=== PATIENT | female | born 1975 | race Caucasian/White ===

== ENCOUNTER 2017-02-26 13:47 | Emergency (ER) | payer OTHER ==
--- NOTE | 2017-02-26 14:38 | DIAGNOSTIC IMAGING REPORT ---
PROCEDURE: XR SHOULDER 2 OR MORE VW-RIGHT INDICATION: PAIN TECHNIQUE: Three views. COMPARISON: None. FINDINGS: Calcific tendonitis. No fracture or dislocation. IMPRESSION: 1. Calcific tendonitis
--- NOTE | 2017-02-26 14:38 | DIAGNOSTIC IMAGING REPORT ---
PROCEDURE: XR SHOULDER 2 OR MORE VW-RIGHT INDICATION: PAIN TECHNIQUE: Three views. COMPARISON: None. FINDINGS: Calcific tendonitis. No fracture or dislocation. IMPRESSION: 1. Calcific tendonitis
--- NOTE | 2017-02-26 15:15 | ED NURSING NOTES ---
Clinical Report - Nurses [facility] [place] [address] 02/26/2017 13:57 [id number] TRI[facility] Triage time 14:Feb 26 2017. Acuity: LEVEL 4. Chief Complaint: RIGHT UPPER EXTREMITY PAIN. 14:07 02/26/17. Alert. No acute distress. BENITA COMA SCORE: [place] Coma Scale: 15- eyes open spontaneously (4); best verbal response- oriented x 4 (5); best motor response- obeys commands (6). --14:15 Angy Rodriguez R.N. 14:06 02/26/17. BP: 124/75. HR: 71. RR: 16. O2 saturation: 98%. Temp: 98.3 F. Pain level now: 07/03. --14:15 Angy Rodriguez R.N. Weight: 73 kg stated. Height/Length: 64 inches Per Patient. BMI: 27.6. --14:15 Angy Rodriguez R.N. Medications None. --14:08 Angy Rodriguez R.N. Medication/allergy information source: the patient. --14:15 Angy Rodriguez R.N. Allergies No Known Drug Allergy. --14:08 Angy Rodriguez R.N. History Arrived by private vehicle. Historian: patient. Accompanied by family. No injury occurred. This occurred (many months). It is described as radiating to the right upper extremity and upper arm. Provoking / relieving factors: relieved by positioning and OTC meds. The patient has had low grade fever and weakness. 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 PAST MEDICAL HX: Tetanus status: up-to-date. Immunizations: up-to-date. Last normal menstrual period now. Denies current . SOCIAL HX: Never smoker. Occasional alcohol use. History of occasional drug use: marijuana. No infectious disease exposure. SELF HARM ASSESSMENT: A self harm assessment was performed. The patient answered "no" to the question "Do you have thoughts of harming or killing yourself?". FALL RISK ASSESSMENT: Fall risk assessment completed. No fall risk identified. NUTRITIONAL RISK ASSESSMENT: The nutritional risk assessment revealed no deficiencies. FUNCTIONAL ASSESSMENT: Functional assessment: no impairments noted. LEARNING NEEDS ASSESSMENT: The learning needs assessment revealed no barriers. ABUSE ASSESSMENT: Abuse assessment: The patient was asked "Do you feel safe in your home?". SKIN INTEGRITY ASSESSMENT: Skin integrity risk assessment completed. No skin integrity risk identified. --14:15 Angy Rodriguez R.N. PROBLEMS: Dental Pain. Abdominal Pain. Vomiting. . OB History. Femal issues, "cone" . Appendicitis. Immunizations. LNMP - Last Normal Menstrual Period. --14:08 Angy Rodriguez R.N. Gallbladder Disease. --14:09 Angy Rodriguez R.N. ADDITIONAL SURGERIES: Appendectomy. Loop Cone. --14:09 Angy Rodriguez R.N. Bilateral Tubal Ligation. . --14:11 Angy Rodriguez R.N. Interventions ID band on patient. To room. --14:15 Angy Rodriguez R.N. PHYSICAL ASSESSMENT Ambulatory to room. GENERAL / NEURO / PSYCH: Oriented X 4. Alert. Appears in no acute distress. EXTREMITIES: Limited ROM present. Neuro-vascular status intact to the extremity. No upper extremity edema. Right shoulder: tenderness. SKIN: Skin is warm and dry. --14:16 Angy Rodriguez R.N. NURSING PROGRESS NOTES Patient gowned. Two patient identifiers checked. Call light placed in reach. Side rails up x 1. Bed placed in lowest position. Brakes of bed on. --14:16 Angy Rodriguez R.N. Care transferred and report given (April HARDIN). --14:20 Angy Rodriguez R.N. 15:20. ( First contact with pt. Pt sitting on bed, fully dressed, in no acute distress. waiting for dc instructions). --16:41 Rosario Solis R.N. DISPOSITION / DISCHARGE 15:20. Condition at departure: improved and stable. No learning barriers present. Discharge instructions provided and reviewed with the patient and spouse. Reviewed medication(s) (naproxyn, vicodin). Treatments reviewed (ice). Patient and spouse verbalized understanding. Written instructions provided in Urdu. The patient was discharged home and accompanied by spouse. She left the Emergency Department ambulatory and via private vehicle. Spouse driving. --16:40 Rosario Solis R.N. 15:20 02/26/17. BP: 118/69. HR: 70. RR: 16. O2 saturation: 100%. Temp: deferred. Pain level now: 05/03. --16:40 Rosario Solis R.N. Locked/Released at 02/26/2017 16:41 by Rosario Solis R.N.
--- NOTE | 2017-02-26 15:15 | ED NURSING NOTES ---
Clinical Report - Nurses [facility] [place] [address] 02/26/2017 13:57 [id number] Triage time 14:Feb 26 2017. Acuity: LEVEL 4. Chief Complaint: RIGHT UPPER EXTREMITY PAIN. 14:07 02/26/17. Alert. No acute distress. BENITA COMA SCORE: [place] Coma Scale: 15- eyes open spontaneously (4); best verbal response- oriented x 4 (5); best motor response- obeys commands (6). --14:15 Angy Rodriguez R.N. 14:06 02/26/17. BP: 124/75. HR: 71. RR: 16. O2 saturation: 98%. Temp: 98.3 F. Pain level now: 07/03. --14:15 Angy Rodriguez R.N. Weight: 73 kg stated. Height/Length: 64 inches Per Patient. BMI: 27.6. --14:15 Angy Rodriguez R.N. Medications None. --14:08 Angy Rodriguez R.N. Medication/allergy information source: the patient. --14:15 Angy Rodriguez R.N. Allergies No Known Drug Allergy. --14:08 Angy Rodriguez R.N. History Arrived by private vehicle. Historian: patient. Accompanied by family. No injury occurred. This occurred (many months). It is described as radiating to the right upper extremity and upper arm. Provoking / relieving factors: relieved by positioning and OTC meds. The patient has had low grade fever and weakness. 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 PAST MEDICAL HX: Tetanus status: up-to-date. Immunizations: up-to-date. Last normal menstrual period now. Denies current . SOCIAL HX: Never smoker. Occasional alcohol use. History of occasional drug use: marijuana. No infectious disease exposure. SELF HARM ASSESSMENT: A self harm assessment was performed. The patient answered "no" to the question "Do you have thoughts of harming or killing yourself?". FALL RISK ASSESSMENT: Fall risk assessment completed. No fall risk identified. NUTRITIONAL RISK ASSESSMENT: The nutritional risk assessment revealed no deficiencies. FUNCTIONAL ASSESSMENT: Functional assessment: no impairments noted. LEARNING NEEDS ASSESSMENT: The learning needs assessment revealed no barriers. ABUSE ASSESSMENT: Abuse assessment: The patient was asked "Do you feel safe in your home?". SKIN INTEGRITY ASSESSMENT: Skin integrity risk assessment completed. No skin integrity risk identified. --14:15 Angy Rodriguez R.N. PROBLEMS: Dental Pain. Abdominal Pain. Vomiting. . OB History. Femal issues, "cone" . Appendicitis. Immunizations. LNMP - Last Normal Menstrual Period. --14:08 Angy Rodriguez R.N. Gallbladder Disease. --14:09 Angy Rodriguez R.N. ADDITIONAL SURGERIES: Appendectomy. Loop Cone. --14:09 Angy Rodriguez R.N. Bilateral Tubal Ligation. . --14:11 Angy Rodriguez R.N. Interventions ID band on patient. To room. --14:15 Angy Rodriguez R.N. PHYSICAL ASSESSMENT Ambulatory to room. GENERAL / NEURO / PSYCH: Oriented X 4. Alert. Appears in no acute distress. EXTREMITIES: Limited ROM present. Neuro-vascular status intact to the extremity. No upper extremity edema. Right shoulder: tenderness. SKIN: Skin is warm and dry. --14:16 Angy Rodriguez R.N. NURSING PROGRESS NOTES Patient gowned. Two patient identifiers checked. Call light placed in reach. Side rails up x 1. Bed placed in lowest position. Brakes of bed on. --14:16 Angy Rodriguez R.N. Care transferred and report given (April HARDIN). --14:20 Angy Rodriguez R.N. 15:20. ( First contact with pt. Pt sitting on bed, fully dressed, in no acute distress. waiting for dc instructions). --16:41 Rosario Solis R.N. DISPOSITION / DISCHARGE 15:20. Condition at departure: improved and stable. No learning barriers present. Discharge instructions provided and reviewed with the patient and spouse. Reviewed medication(s) (naproxyn, vicodin). Treatments reviewed (ice). Patient and spouse verbalized understanding. Written instructions provided in Sinhala. The patient was discharged home and accompanied by spouse. She left the Emergency Department ambulatory and via private vehicle. Spouse driving. --16:40 Rosario Solis R.N. 15:20 02/26/17. BP: 118/69. HR: 70. RR: 16. O2 saturation: 100%. Temp: deferred. Pain level now: 05/03. --16:40 Rosario Solis R.N. Locked/Released at 02/26/2017 16:41 by Rosario Solis R.N.
--- NOTE | 2017-02-26 15:15 | ED CLINICAL REPORT ---
Clinical Report - Physicians/Mid Levels [facility] [address] [place] [address] 02/26/2017 13:57 Patient: JEFFRY HERNANDEZ Time Seen: 14:09; upon arrival, initial patient contact, initial documentation, patient care assumed. Arrived- By private vehicle. Historian- patient. HISTORY OF PRESENT ILLNESS Chief Complaint: UPPER EXTREMITY PAIN. This started about 1 years ago and is still present and worsening. (worse 2 months ago or more). The quality is noted to be "pain". No radiation. Modifying factors- worsened by movement of arm. Not made better by anything. Symptoms located in the area of the right shoulder. No chest pain, difficulty breathing, swelling, sensory loss or motor loss. No repetitive hand use at work. She has not had redness. Patient denies an injury. Similar symptoms previously: Chronically, as bad. Recent medical care: Not recently seen/assessed. REVIEW OF SYSTEMS All systems otherwise negative, except as recorded above. PAST HISTORY See nurses notes. PROBLEMS: Dental Pain. Abdominal Pain. Vomiting. . OB History. Femal issues, "cone" . Appendicitis. Immunizations. LNMP - Last Normal Menstrual Period. --14:08 Angy Rodriguez R.N. SOCIAL HISTORY Never smoker. Occasional alcohol use. History of occasional drug use: marijuana. No recent travel. Is a local resident. FAMILY HISTORY Negative. ADDITIONAL NOTES The nursing notes have been reviewed with agreement regarding the chief complaint, HPI, ROS, PMH and patient medications and allergies. PHYSICAL EXAM Vital Signs: 02/26/2017 14:06 BP: 124/75. HR: 71. RR: 16. O2 saturation: 98%. Temp: 98.3 F. Pain level now: 8/10. Have been reviewed as normal and appear to be correct. Appearance: Alert. Oriented X3. No acute distress. Eyes: Pupils equal, round and reactive to light. Eyes normal inspection. Neck: Normal inspection. Neck supple. Respiratory: No respiratory distress. Back: Normal inspection. No tenderness. ROM normal. Skin: Skin intact. Skin warm and dry. Normal skin color. Normal skin turgor. Extremities: Upper extremities abnormal to inspection. Upper extremities do not exhibit normal ROM. Upper extremity tenderness. No upper extremity edema. Right shoulder: mild tenderness. Limited ROM due to pain (diminished abduction, adduction, flexion, extension and external and internal rotation). Neurovascular intact distally. No erythema, swelling, laceration, abrasion or ecchymosis. No puncture wound, foreign body or deformity. No localization or joint effusion. Extremities otherwise negative. Neuro: Oriented X 3. No motor deficit. No sensory deficit. LABS, X-RAYS, AND EKG X-Rays: Right shoulder. Rt Shoulder X-ray: (IMPRESSION: 1. Calcific tendonitis Electronically Final signed by:Jairo Gallardo MD 02/26/2017 2:38:34 PM). The X-rays were interpreted by the radiologist and contemporaneously by me and discussed with the radiologist. Interpretation time: 14:40. PROGRESS AND PROCEDURES Course of Care: 14:18 02/26/17. pt has brief frederic, nothing alarming, see report for full details. Patient and spouse counseled in person regarding the patient's stable condition, test results and diagnosis. 14:40. Differential Diagnosis: I considered stress fracture, aseptic necrosis, primary tumor, degenerative joint disease, arthritis, rheumatoid arthritis, gout, pseudogout, acromioclavicular separation, tendonitis, myositis, fasciitis and bursitis as a possible cause of upper extremity pain in this patient. This is a partial list of diagnoses considered. Above considerations are based on history, physical exam, reassessment and X-Ray data. Differential diagnosis was discussed with patient and patient's spouse. Disposition: Discharged home in good and unchanged condition (15:15). Condition: good and stable. CLINICAL IMPRESSION Chronic calcific tendonitis in the right shoulder. INSTRUCTIONS Warnings: GENERAL WARNINGS: Return or contact your physician immediately if your condition worsens or changes unexpectedly, if not improving as expected, or if other problems arise. Specifically return if problem worsens. Prescription Medications: Naproxen 500 mg tablets: take 1 orally every 12 hours as needed for pain. Dispense twenty (20). No refills. [place] 5 mg / 325 mg tablets: take 1 orally every 6 hours as needed for pain. Dispense five (5). No refill. Understanding of the discharge instructions verbalized by patient. Follow-up with: [facility], , [address], , [place], [facility]; Sukhjinder Morgan M.D., Ortho, , [address], , [place], [address]; Gus Price M.D., Ortho, , [address], , [place], [address]; Irving Sullivan MD, Orthopedic Surgeon, , [address], , [place], [address]; Jesse Disla MD, Orthopedic Surgeon, , [address] , [place] [address] Follow up in one week as needed. Call for an appointment. Summary of care provided to patient. (Electronically signed by Alma Bergman A.R.N.P. 02/26/2017 15:27)
--- NOTE | 2017-02-26 15:15 | ED ORDER SUMMARY ---
..... Patient: JEFFRY HERNANDEZ OrderSheet [facility] VisitID: [id number] [place] [address] 41y, F Registration Date/Time: 02/26/2017 ORDER SHEET Weight: 73.0 kg (stated) Allergies: No Known Drug Allergy GENERAL ORDERS: Shoulder 2V or more Right Urgent (14:15 02/26/2017 YURIYivenviviana A.R.N.P.) (Ack 14:17 KEVINoercarol) (14:25 Andre) MEDICATION ORDERS: IV FLUIDS: ORDER SHEET NOTES: [Electronically signed by Alma Bergman A.R.N.P. (15:27 02/26/2017)] [Electronically signed by Rosario Solis R.N. (16:41 02/26/2017)] [Electronically locked/signed by Rosario Solis R.N. (16:41 02/26/2017)]
--- NOTE | 2017-02-26 15:15 | ED ORDER SUMMARY ---
..... Patient: JEFFRY HERNANDEZ OrderSheet [facility] VisitID: [id number] [place] [address] 41y, F Registration Date/Time: 02/26/2017 ORDER SHEET Weight: 73.0 kg (stated) Allergies: No Known Drug Allergy GENERAL ORDERS: Shoulder 2V or more Right Urgent (14:15 02/26/2017 YURIYivenviviana A.R.N.P.) (Ack 14:17 KEVINoercarol) (14:25 Andre) MEDICATION ORDERS: IV FLUIDS: ORDER SHEET NOTES: [Electronically signed by Alma Bergman A.R.N.P. (15:27 02/26/2017)] [Electronically signed by Rosario Solis R.N. (16:41 02/26/2017)] [Electronically locked/signed by Rosario Solis R.N. (16:41 02/26/2017)]
--- NOTE | 2017-02-26 15:15 | ED CLINICAL REPORT ---
Clinical Report - Physicians/Mid Levels [facility] [address] [place] [address] 02/26/2017 13:57 Patient: JEFFRY HERNANDEZ Time Seen: 14:09; upon arrival, initial patient contact, initial documentation, patient care assumed. Arrived- By private vehicle. Historian- patient. HISTORY OF PRESENT ILLNESS Chief Complaint: UPPER EXTREMITY PAIN. This started about 1 years ago and is still present and worsening. (worse 2 months ago or more). The quality is noted to be "pain". No radiation. Modifying factors- worsened by movement of arm. Not made better by anything. Symptoms located in the area of the right shoulder. No chest pain, difficulty breathing, swelling, sensory loss or motor loss. No repetitive hand use at work. She has not had redness. Patient denies an injury. Similar symptoms previously: Chronically, as bad. Recent medical care: Not recently seen/assessed. REVIEW OF SYSTEMS All systems otherwise negative, except as recorded above. PAST HISTORY See nurses notes. PROBLEMS: Dental Pain. Abdominal Pain. Vomiting. . OB History. Femal issues, "cone" . Appendicitis. Immunizations. LNMP - Last Normal Menstrual Period. --14:08 Angy Rodriguez R.N. SOCIAL HISTORY Never smoker. Occasional alcohol use. History of occasional drug use: marijuana. No recent travel. Is a local resident. FAMILY HISTORY Negative. ADDITIONAL NOTES The nursing notes have been reviewed with agreement regarding the chief complaint, HPI, ROS, PMH and patient medications and allergies. PHYSICAL EXAM Vital Signs: 02/26/2017 14:06 BP: 124/75. HR: 71. RR: 16. O2 saturation: 98%. Temp: 98.3 F. Pain level now: 8/10. Have been reviewed as normal and appear to be correct. Appearance: Alert. Oriented X3. No acute distress. Eyes: Pupils equal, round and reactive to light. Eyes normal inspection. Neck: Normal inspection. Neck supple. Respiratory: No respiratory distress. Back: Normal inspection. No tenderness. ROM normal. Skin: Skin intact. Skin warm and dry. Normal skin color. Normal skin turgor. Extremities: Upper extremities abnormal to inspection. Upper extremities do not exhibit normal ROM. Upper extremity tenderness. No upper extremity edema. Right shoulder: mild tenderness. Limited ROM due to pain (diminished abduction, adduction, flexion, extension and external and internal rotation). Neurovascular intact distally. No erythema, swelling, laceration, abrasion or ecchymosis. No puncture wound, foreign body or deformity. No localization or joint effusion. Extremities otherwise negative. Neuro: Oriented X 3. No motor deficit. No sensory deficit. LABS, X-RAYS, AND EKG X-Rays: Right shoulder. Rt Shoulder X-ray: (IMPRESSION: 1. Calcific tendonitis Electronically Final signed by:Jairo Gallardo MD 02/26/2017 2:38:34 PM). The X-rays were interpreted by the radiologist and contemporaneously by me and discussed with the radiologist. Interpretation time: 14:40. PROGRESS AND PROCEDURES Course of Care: 14:18 02/26/17. pt has brief frederic, nothing alarming, see report for full details. Patient and spouse counseled in person regarding the patient's stable condition, test results and diagnosis. 14:40. Differential Diagnosis: I considered stress fracture, aseptic necrosis, primary tumor, degenerative joint disease, arthritis, rheumatoid arthritis, gout, pseudogout, acromioclavicular separation, tendonitis, myositis, fasciitis and bursitis as a possible cause of upper extremity pain in this patient. This is a partial list of diagnoses considered. Above considerations are based on history, physical exam, reassessment and X-Ray data. Differential diagnosis was discussed with patient and patient's spouse. Disposition: Discharged home in good and unchanged condition (15:15). Condition: good and stable. CLINICAL IMPRESSION Chronic calcific tendonitis in the right shoulder. INSTRUCTIONS Warnings: GENERAL WARNINGS: Return or contact your physician immediately if your condition worsens or changes unexpectedly, if not improving as expected, or if other problems arise. Specifically return if problem worsens. Prescription Medications: Naproxen 500 mg tablets: take 1 orally every 12 hours as needed for pain. Dispense twenty (20). No refills. [place] 5 mg / 325 mg tablets: take 1 orally every 6 hours as needed for pain. Dispense five (5). No refill. Understanding of the discharge instructions verbalized by patient. Follow-up with: [facility], , [address], , [place], [facility]; Sukhjinder Morgan M.D., Ortho, , [address], , [place], [address]; Gus Price M.D., Ortho, , [address], , [place], [address]; Irving Sullivan MD, Orthopedic Surgeon, , [address], , [place], [address]; Jesse Disla MD, Orthopedic Surgeon, , [address] , [place] [address] Follow up in one week as needed. Call for an appointment. Summary of care provided to patient. (Electronically signed by Alma Bergman A.R.N.P. 02/26/2017 15:27)
--- NOTE | 2017-02-26 16:41 | ED MED RECONCILIATION SUMMARY ---
Patient: JEFFRY HERNANDEZ Medication Reconciliation Report [facility] VisitID: [id number] [place] [address] 41y, F Registration Date/Time: 02/26/2017 Weight: 73.0 kg Height/Length: 64 in. BMI: 27.6 ALLERGIES: No Known Drug Allergy The patient's Home Medications are listed below: NONE. The source(s) of the original Home Medication information: patient The following Medications were given to the patient in the Emergency Department: None. The following Medications were prescribed to the patient: Naproxen 500 mg tablets: take 1 orally every 12 hours as needed for pain. Dispense twenty (20). No refills. -- Alma Bergman, A.R.N.P. [place] 5 mg / 325 mg tablets: take 1 orally every 6 hours as needed for pain. Dispense five (5). No refill. -- Alma Bergman A.R.N.P.
--- NOTE | 2017-02-26 16:41 | ED MAR SUMMARY ---
..... Medication Administration Record [facility] [address] [place], [place] [id number] Patient: GEORGES HERNANDEZQUEPABLO Miller Visit ID: [id number] 41y, F Weight: 73.0 kg Height/Length: 64 in BMI: 27.6 ALLERGIES: No Known Drug Allergy
--- NOTE | 2017-02-26 16:41 | ED MED RECONCILIATION SUMMARY ---
Patient: JEFFRY HERNANDEZ Medication Reconciliation Report [facility] VisitID: [id number] [place] [address] 41y, F Registration Date/Time: 02/26/2017 Weight: 73.0 kg Height/Length: 64 in. BMI: 27.6 ALLERGIES: No Known Drug Allergy The patient's Home Medications are listed below: NONE. The source(s) of the original Home Medication information: patient The following Medications were given to the patient in the Emergency Department: None. The following Medications were prescribed to the patient: Naproxen 500 mg tablets: take 1 orally every 12 hours as needed for pain. Dispense twenty (20). No refills. -- Alma Bergman, A.R.N.P. [place] 5 mg / 325 mg tablets: take 1 orally every 6 hours as needed for pain. Dispense five (5). No refill. -- Alma Bergman A.R.N.P.
--- NOTE | 2017-02-26 16:41 | ED DISCHARGE INSTRUCTIONS ---
Patient: JEFFRY HERNANDEZ General Instructions [facility] VisitID: [id number] 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 INSTRUCTIONS Warnings: GENERAL WARNINGS: Return or contact your physician immediately if your condition worsens or changes unexpectedly, if not improving as expected, or if other problems arise. Specifically return if problem worsens. Prescription Medications: Naproxen 500 mg tablets: take 1 orally every 12 hours as needed for pain. Dispense twenty (20). No refills. [place] 5 mg / 325 mg tablets: take 1 orally every 6 hours as needed for pain. Dispense five (5). No refill. Understanding of the discharge instructions verbalized by patient. Follow-up with: [facility], [facility], , [address], , [place] [id number]; Sukhjinder Morgan M.D., Ortho, , [address], , [facility] [id number]; Gus Price M.D., Ortho, , [address], , [place] [id number]; Irving Sullivan MD, Orthopedic Surgeon, , [address], , [place], [address]; Jesse Disla MD, Orthopedic Surgeon, , [address] , [place] [id number] Follow up in one week as needed. Call for an appointment. Summary of care provided to patient. ADDITIONAL INFORMATION Tendonitis A tendon is the thick fibrous cord that joins muscle to bone and causes joints to move. Tendonitis is inflammation of the tendon which may be due to overuse, injury or infection. This usually involves the shoulders, forearm, wrist, hands and foot. Symptoms include local pain, swelling and tenderness to the touch. Movement of the involved joint increases the pain. Tendonitis requires about 4 to 6 weeks to heal. It is treated by preventing motion of the tendon with a splint or brace and use of anti-inflammatory medicine. Home Care: Apply an ice pack (ice cubes in a plastic bag, wrapped in a towel) over the injured area for 20 minutes every 1-2 hours the first day for pain relief. Continue this 3-4 times a day until the pain and swelling goes away. Rest the inflamed joint and protect it from movement. You may use ibuprofen (Motrin, Advil) or naproxen (Aleve, Naprosyn) to treat pain and inflammation, unless another medicine was prescribed. If you can't take these medicines, acetaminophen (Tylenol) may help with the pain, but does not treat inflammation. [NOTE : If you have chronic liver or kidney disease or ever had a stomach ulcer or GI bleeding, talk with your doctor before using these medicines.] As your symptoms improve, begin gradual motion at the involved joint. Follow Up With Your Doctor If Not Improving After The First Five Days Of Treatment. Get Prompt Medical Attention If Any Of The Following Occur: Redness over the painful area Increasing pain or swelling at the joint Fever of 100.4F (38C) or higher, or as directed by your healthcare provider Naproxen Sodium Oral tablet What is this medicine? NAPROXEN (na PROX en) is a non-steroidal anti-inflammatory drug (NSAID). It is used to reduce swelling and to treat pain. This medicine may be used for dental pain, headache, or painful monthly periods. It is also used for painful joint and muscular problems such as arthritis, tendinitis, bursitis, and gout. How should I use this medicine? Take this medicine by mouth with a glass of water. Follow the directions on the prescription label. Take it with food if your stomach gets upset. Try to not lie down for at least 10 minutes after you take it. Take your medicine at regular intervals. Do not take your medicine more often than directed. Long-term, continuous use may increase the risk of heart attack or stroke. A special MedGuide will be given to you by the pharmacist with each prescription and refill. Be sure to read this information carefully each time. Talk to your trading specialist regarding the use of this medicine in children. Special care may be needed. What side effects may I notice from receiving this medicine? Side effects that you should report to your doctor or health career based intervention coordinator as soon as possible: black or bloody stools, blood in the urine or vomit blurred vision chest pain difficulty breathing or wheezing nausea or vomiting severe stomach pain skin rash, skin redness, blistering or peeling skin, hives, or itching slurred speech or weakness on one side of the body swelling of eyelids, throat, lips unexplained weight gain or swelling unusually weak or tired yellowing of eyes or skin Side effects that usually do not require medical attention (report to your doctor or health career based intervention coordinator if they continue or are bothersome): constipation headache heartburn What may interact with this medicine? alcohol aspirin cidofovir diuretics lithium methotrexate other drugs for inflammation like ketorolac or prednisone pemetrexed probenecid warfarin What if I miss a dose? If you miss a dose, take it as soon as you can. If it is almost time for your next dose, take only that dose. Do not take double or extra doses. Where should I keep my medicine? Keep out of the reach of children. Store at room temperature between 15 and 30 degrees C (59 and 86 degrees F). Keep container tightly closed. Throw away any unused medicine after the expiration date. What should I tell my health care provider before I take this medicine? They need to know if you have any of these conditions: asthma cigarette smoker drink more than 3 alcohol containing drinks a day heart disease or circulation problems such as heart failure or leg edema (fluid retention) high blood pressure kidney disease liver disease stomach bleeding or ulcers an unusual or allergic reaction to naproxen, aspirin, other NSAIDs, other medicines, foods, dyes, or preservatives or trying to get breast-feeding What should I watch for while using this medicine? Tell your doctor or health career based intervention coordinator if your pain does not get better. Talk to your doctor before taking another medicine for pain. Do not treat yourself. This medicine does not prevent heart attack or stroke. In fact, this medicine may increase the chance of a heart attack or stroke. The chance may increase with longer use of this medicine and in people who have heart disease. If you take aspirin to prevent heart attack or stroke, talk with your doctor or health career based intervention coordinator. Do not take other medicines that contain aspirin, ibuprofen, or naproxen with this medicine. Side effects such as stomach upset, nausea, or ulcers may be more likely to occur. Many medicines available without a prescription should not be taken with this medicine. This medicine can cause ulcers and bleeding in the stomach and intestines at any time during treatment. Do not smoke cigarettes or drink alcohol. These increase irritation to your stomach and can make it more susceptible to damage from this medicine. Ulcers and bleeding can happen without warning symptoms and can cause . You may get drowsy or dizzy. Do not drive, use machinery, or do anything that needs mental alertness until you know how this medicine affects you. Do not stand or sit up quickly, especially if you are an older patient. This reduces the risk of dizzy or fainting spells. This medicine can cause you to bleed more easily. Try to avoid damage to your teeth and gums when you brush or floss your teeth. Hydrocodone Bitartrate, Acetaminophen Oral tablet What is this medicine? ACETAMINOPHEN; HYDROCODONE (a set a LUCIANO meredith fen; yash droe KOE done) is a pain reliever. It is used to treat mild to moderate pain. How should I use this medicine? Take this medicine by mouth. Swallow it with a full glass of water. Follow the directions on the prescription label. If the medicine upsets your stomach, take the medicine with food or milk. Do not take more than you are told to take. Talk to your trading specialist regarding the use of this medicine in children. This medicine is not approved for use in children. What side effects may I notice from receiving this medicine? Side effects that you should report to your doctor or health career based intervention coordinator as soon as possible: allergic reactions like skin rash, itching or hives, swelling of the face, lips, or tongue breathing problems confusion feeling faint or lightheaded, falls stomach pain yellowing of the eyes or skin Side effects that usually do not require medical attention (report to your doctor or health career based intervention coordinator if they continue or are bothersome): nausea, vomiting stomach upset What may interact with this medicine? alcohol antihistamines isoniazid medicines for depression, anxiety, or psychotic disturbances medicines for sleep muscle relaxants naltrexone narcotic medicines (opiates) for pain phenobarbital ritonavir tramadol What if I miss a dose? If you miss a dose, take it as soon as you can. If it is almost time for your next dose, take only that dose. Do not take double or extra doses. Where should I keep my medicine? Keep out of the reach of children. This medicine can be abused. Keep your medicine in a safe place to protect it from theft. Do not share this medicine with anyone. Selling or giving away this medicine is dangerous and against the law. Store at room temperature between 15 and 30 degrees C (59 and 86 degrees F). Protect from light. Keep container tightly closed. Throw away any unused medicine after the expiration date. Discard unused medicine and used packaging carefully. Pets and children can be harmed if they find used or lost packages. What should I tell my health care provider before I take this medicine? They need to know if you have any of these conditions: brain tumor Crohn's disease, inflammatory bowel disease, or ulcerative colitis drink more than 3 alcohol-containing drinks per day drug abuse or addiction head injury heart or circulation problems kidney disease or problems going to the bathroom liver disease lung disease, asthma, or breathing problems an unusual or allergic reaction to acetaminophen, hydrocodone, other opioid analgesics, other medicines, foods, dyes, or preservatives or trying to get breast-feeding What should I watch for while using this medicine? Tell your doctor or health career based intervention coordinator if your pain does not go away, if it gets worse, or if you have new or a different type of pain. You may develop tolerance to the medicine. Tolerance means that you will need a higher dose of the medicine for pain relief. Tolerance is normal and is expected if you take the medicine for a long time. Do not suddenly stop taking your medicine because you may develop a severe reaction. Your body becomes used to the medicine. This does NOT mean you are addicted. Addiction is a behavior related to getting and using a drug for a non-medical reason. If you have pain, you have a medical reason to take pain medicine. Your doctor will tell you how much medicine to take. If your doctor wants you to stop the medicine, the dose will be slowly lowered over time to avoid any side effects. You may get drowsy or dizzy when you first start taking the medicine or change doses. Do not drive, use machinery, or do anything that may be dangerous until you know how the medicine affects you. Stand or sit up slowly. There are different types of narcotic medicines (opiates) for pain. If you take more than one type at the same time, you may have more side effects. Give your health care provider a list of all medicines you use. Your doctor will tell you how much medicine to take. Do not take more medicine than directed. Call emergency for help if you have problems breathing. The medicine will cause constipation. Try to have a bowel movement at least every 2 to 3 days. If you do not have a bowel movement for 3 days, call your doctor or health career based intervention coordinator. Too much acetaminophen can be very dangerous. Do not take Tylenol (acetaminophen) or medicines that contain acetaminophen with this medicine. Many non-prescription medicines contain acetaminophen. Always read the labels carefully. You have been given the following additional information: Tendonitis Naproxen Sodium Oral tablet Hydrocodone Bitartrate, Acetaminophen Oral tablet (Electronically signed by Alma Bergman A.R.N.P. 02/26/2017 15:27)
--- NOTE | 2017-02-26 16:41 | ED MAR SUMMARY ---
..... Medication Administration Record [facility] [address] [place], [place] [id number] Patient: GEORGES HERNANDEZQUEPABLO Miller Visit ID: [id number] 41y, F Weight: 73.0 kg Height/Length: 64 in BMI: 27.6 ALLERGIES: No Known Drug Allergy
--- NOTE | 2017-02-26 16:41 | ED DISCHARGE INSTRUCTIONS ---
Patient: JEFFRY HERNANDEZ General Instructions [facility] VisitID: [id number] 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 INSTRUCTIONS Warnings: GENERAL WARNINGS: Return or contact your physician immediately if your condition worsens or changes unexpectedly, if not improving as expected, or if other problems arise. Specifically return if problem worsens. Prescription Medications: Naproxen 500 mg tablets: take 1 orally every 12 hours as needed for pain. Dispense twenty (20). No refills. [place] 5 mg / 325 mg tablets: take 1 orally every 6 hours as needed for pain. Dispense five (5). No refill. Understanding of the discharge instructions verbalized by patient. Follow-up with: [facility], [facility]o, , [address], , [place] [id number]; Sukhjinder Morgan M.D., Ortho, , [address], , [facility] [id number]; Gus Price M.D., Ortho, , [address], , [place] [phone]; Irving Sullivan MD, Orthopedic Surgeon, , [address], , [place], [address]; Jesse Disla MD, Orthopedic Surgeon, , [address] , [place] [id number] Follow up in one week as needed. Call for an appointment. Summary of care provided to patient. ADDITIONAL INFORMATION Tendonitis A tendon is the thick fibrous cord that joins muscle to bone and causes joints to move. Tendonitis is inflammation of the tendon which may be due to overuse, injury or infection. This usually involves the shoulders, forearm, wrist, hands and foot. Symptoms include local pain, swelling and tenderness to the touch. Movement of the involved joint increases the pain. Tendonitis requires about 4 to 6 weeks to heal. It is treated by preventing motion of the tendon with a splint or brace and use of anti-inflammatory medicine. Home Care: Apply an ice pack (ice cubes in a plastic bag, wrapped in a towel) over the injured area for 20 minutes every 1-2 hours the first day for pain relief. Continue this 3-4 times a day until the pain and swelling goes away. Rest the inflamed joint and protect it from movement. You may use ibuprofen (Motrin, Advil) or naproxen (Aleve, Naprosyn) to treat pain and inflammation, unless another medicine was prescribed. If you can't take these medicines, acetaminophen (Tylenol) may help with the pain, but does not treat inflammation. [NOTE : If you have chronic liver or kidney disease or ever had a stomach ulcer or GI bleeding, talk with your doctor before using these medicines.] As your symptoms improve, begin gradual motion at the involved joint. Follow Up With Your Doctor If Not Improving After The First Five Days Of Treatment. Get Prompt Medical Attention If Any Of The Following Occur: Redness over the painful area Increasing pain or swelling at the joint Fever of 100.4F (38C) or higher, or as directed by your healthcare provider Naproxen Sodium Oral tablet What is this medicine? NAPROXEN (na PROX en) is a non-steroidal anti-inflammatory drug (NSAID). It is used to reduce swelling and to treat pain. This medicine may be used for dental pain, headache, or painful monthly periods. It is also used for painful joint and muscular problems such as arthritis, tendinitis, bursitis, and gout. How should I use this medicine? Take this medicine by mouth with a glass of water. Follow the directions on the prescription label. Take it with food if your stomach gets upset. Try to not lie down for at least 10 minutes after you take it. Take your medicine at regular intervals. Do not take your medicine more often than directed. Long-term, continuous use may increase the risk of heart attack or stroke. A special MedGuide will be given to you by the pharmacist with each prescription and refill. Be sure to read this information carefully each time. Talk to your line tender flakeboard regarding the use of this medicine in children. Special care may be needed. What side effects may I notice from receiving this medicine? Side effects that you should report to your doctor or health daycare director as soon as possible: black or bloody stools, blood in the urine or vomit blurred vision chest pain difficulty breathing or wheezing nausea or vomiting severe stomach pain skin rash, skin redness, blistering or peeling skin, hives, or itching slurred speech or weakness on one side of the body swelling of eyelids, throat, lips unexplained weight gain or swelling unusually weak or tired yellowing of eyes or skin Side effects that usually do not require medical attention (report to your doctor or health daycare director if they continue or are bothersome): constipation headache heartburn What may interact with this medicine? alcohol aspirin cidofovir diuretics lithium methotrexate other drugs for inflammation like ketorolac or prednisone pemetrexed probenecid warfarin What if I miss a dose? If you miss a dose, take it as soon as you can. If it is almost time for your next dose, take only that dose. Do not take double or extra doses. Where should I keep my medicine? Keep out of the reach of children. Store at room temperature between 15 and 30 degrees C (59 and 86 degrees F). Keep container tightly closed. Throw away any unused medicine after the expiration date. What should I tell my health care provider before I take this medicine? They need to know if you have any of these conditions: asthma cigarette smoker drink more than 3 alcohol containing drinks a day heart disease or circulation problems such as heart failure or leg edema (fluid retention) high blood pressure kidney disease liver disease stomach bleeding or ulcers an unusual or allergic reaction to naproxen, aspirin, other NSAIDs, other medicines, foods, dyes, or preservatives or trying to get breast-feeding What should I watch for while using this medicine? Tell your doctor or health daycare director if your pain does not get better. Talk to your doctor before taking another medicine for pain. Do not treat yourself. This medicine does not prevent heart attack or stroke. In fact, this medicine may increase the chance of a heart attack or stroke. The chance may increase with longer use of this medicine and in people who have heart disease. If you take aspirin to prevent heart attack or stroke, talk with your doctor or health daycare director. Do not take other medicines that contain aspirin, ibuprofen, or naproxen with this medicine. Side effects such as stomach upset, nausea, or ulcers may be more likely to occur. Many medicines available without a prescription should not be taken with this medicine. This medicine can cause ulcers and bleeding in the stomach and intestines at any time during treatment. Do not smoke cigarettes or drink alcohol. These increase irritation to your stomach and can make it more susceptible to damage from this medicine. Ulcers and bleeding can happen without warning symptoms and can cause . You may get drowsy or dizzy. Do not drive, use machinery, or do anything that needs mental alertness until you know how this medicine affects you. Do not stand or sit up quickly, especially if you are an older patient. This reduces the risk of dizzy or fainting spells. This medicine can cause you to bleed more easily. Try to avoid damage to your teeth and gums when you brush or floss your teeth. Hydrocodone Bitartrate, Acetaminophen Oral tablet What is this medicine? ACETAMINOPHEN; HYDROCODONE (a set a LUCIANO meredith fen; yash droe KOE done) is a pain reliever. It is used to treat mild to moderate pain. How should I use this medicine? Take this medicine by mouth. Swallow it with a full glass of water. Follow the directions on the prescription label. If the medicine upsets your stomach, take the medicine with food or milk. Do not take more than you are told to take. Talk to your line tender flakeboard regarding the use of this medicine in children. This medicine is not approved for use in children. What side effects may I notice from receiving this medicine? Side effects that you should report to your doctor or health daycare director as soon as possible: allergic reactions like skin rash, itching or hives, swelling of the face, lips, or tongue breathing problems confusion feeling faint or lightheaded, falls stomach pain yellowing of the eyes or skin Side effects that usually do not require medical attention (report to your doctor or health daycare director if they continue or are bothersome): nausea, vomiting stomach upset What may interact with this medicine? alcohol antihistamines isoniazid medicines for depression, anxiety, or psychotic disturbances medicines for sleep muscle relaxants naltrexone narcotic medicines (opiates) for pain phenobarbital ritonavir tramadol What if I miss a dose? If you miss a dose, take it as soon as you can. If it is almost time for your next dose, take only that dose. Do not take double or extra doses. Where should I keep my medicine? Keep out of the reach of children. This medicine can be abused. Keep your medicine in a safe place to protect it from theft. Do not share this medicine with anyone. Selling or giving away this medicine is dangerous and against the law. Store at room temperature between 15 and 30 degrees C (59 and 86 degrees F). Protect from light. Keep container tightly closed. Throw away any unused medicine after the expiration date. Discard unused medicine and used packaging carefully. Pets and children can be harmed if they find used or lost packages. What should I tell my health care provider before I take this medicine? They need to know if you have any of these conditions: brain tumor Crohn's disease, inflammatory bowel disease, or ulcerative colitis drink more than 3 alcohol-containing drinks per day drug abuse or addiction head injury heart or circulation problems kidney disease or problems going to the bathroom liver disease lung disease, asthma, or breathing problems an unusual or allergic reaction to acetaminophen, hydrocodone, other opioid analgesics, other medicines, foods, dyes, or preservatives or trying to get breast-feeding What should I watch for while using this medicine? Tell your doctor or health daycare director if your pain does not go away, if it gets worse, or if you have new or a different type of pain. You may develop tolerance to the medicine. Tolerance means that you will need a higher dose of the medicine for pain relief. Tolerance is normal and is expected if you take the medicine for a long time. Do not suddenly stop taking your medicine because you may develop a severe reaction. Your body becomes used to the medicine. This does NOT mean you are addicted. Addiction is a behavior related to getting and using a drug for a non-medical reason. If you have pain, you have a medical reason to take pain medicine. Your doctor will tell you how much medicine to take. If your doctor wants you to stop the medicine, the dose will be slowly lowered over time to avoid any side effects. You may get drowsy or dizzy when you first start taking the medicine or change doses. Do not drive, use machinery, or do anything that may be dangerous until you know how the medicine affects you. Stand or sit up slowly. There are different types of narcotic medicines (opiates) for pain. If you take more than one type at the same time, you may have more side effects. Give your health care provider a list of all medicines you use. Your doctor will tell you how much medicine to take. Do not take more medicine than directed. Call emergency for help if you have problems breathing. The medicine will cause constipation. Try to have a bowel movement at least every 2 to 3 days. If you do not have a bowel movement for 3 days, call your doctor or health daycare director. Too much acetaminophen can be very dangerous. Do not take Tylenol (acetaminophen) or medicines that contain acetaminophen with this medicine. Many non-prescription medicines contain acetaminophen. Always read the labels carefully. You have been given the following additional information: Tendonitis Naproxen Sodium Oral tablet Hydrocodone Bitartrate, Acetaminophen Oral tablet (Electronically signed by Alma Bergman A.R.N.P. 02/26/2017 15:27)
== END 2017-02-26 15:20 | disposition home or self-care (01) ==
LOC: ED SRH 13:47
DX: M75.31 Calcific tendinitis of right shoulder (principal)